=== PATIENT | male | born 1985 | race Caucasian/White ===

== ENCOUNTER 2024-01-10 06:53 | Emergency (ER) | payer OTHER, SELFPAY ==
--- NOTE | 2024-01-10 | ECG_ITS ---
Test Reason : chest pain Blood Pressure : / mmHG Vent. Rate : 100 BPM Atrial Rate : 100 BPM P-R Int : 170 ms QRS Dur : 104 ms QT Int : 354 ms P-R-T Axes : 042 066 059 degrees QTc Int : 456 ms Normal sinus rhythm Incomplete right bundle branch block Borderline ECG When compared with ECG of 20-JUN-2017 21:06, No significant change was found Referred By: Generic ED Physician Electronically Signed By:Mandeep Woodall
--- NOTE | ~2024-01-10 | XR_ITS ---
EXAMINATION: XR CHEST CLINICAL INFORMATION: Pleuritic chest pain COMPARISON: Chest radiograph from 07/02/2008 TECHNIQUE: 2 views of the chest were obtained. FINDINGS: Slight bibasilar radiopacities may reflect atelectasis versus evolving infectious/inflammatory etiology, right greater than left. No pneumothorax. Trachea is midline. Cardiac mediastinal silhouette is not enlarged. No large pleural effusion. Osseous structures are intact. Soft tissues are unremarkable. XR/XR chest 2V IMPRESSION: Slight bibasilar radiopacities may reflect atelectasis versus evolving infectious/inflammatory etiology, right greater than left.
[2024-01-10 07:00] VITALS: BP 143/95; PULSE 98; RESP 18; TEMP 36.7; O2SAT 96; BMI 30.4
--- NOTE | 2024-01-10 07:05 | ED.CHESTPAIN ---
HPI - Chest Pain General Chief Complaint: Chest Pain Stated Complaint: Chest pain Time Seen by Provider: 01/10/24 07:05 Source: patient Mode of arrival: ambulatory Limitations: no limitations History of Present Illness HPI narrative: 38-year-old male with history of hypertension who presents emergency department for evaluation of 2-3 days of pleuritic chest pain, cough, shortness of breath, myalgias, arthralgias, cough induced vomiting. Patient points to his sternum when asked to localize his chest pain. States that the pain is a pressure-like pain which is worse with coughing and with breathing. States he has had a productive cough. He feels short of breath and has dyspnea on exertion. He states his cough is sometimes vigorous that causes him to vomit. Related Data Previous Rx's Medication Instructions Recorded acetaminophen 500 mg tablet 1,000 mg (2 x 500 mg) PO Q6H PRN 01/10/24 (Tylenol Extra Strength) fever or pain #20 tabs albuterol sulfate 90 mcg/actuation 2 puff inhalation QID PRN 01/10/24 aerosol inhaler (Ventolin HFA) bronchospasm #6.7 grams doxycycline hyclate 100 mg tablet 100 mg PO Q12H 7 days #14 tabs 01/10/24 ibuprofen 400 mg tablet 400 mg PO TID PRN fever or pain 01/10/24 #30 tabs Allergies Allergy/AdvReac Type Severity Reaction Status Date / Time No Known Allergies Allergy Verified 01/10/24 07:00 [No Known Allergies*] Review of Systems Review of Systems: Yes all other systems are reviewed and are negative [facility] Past Medical History [facility] Narrative: Past medical history: Hypertension social history: He smokes 1 pack of cigarettes per week. He does drink alcohol daily and he did drink alcohol today. Denies drug use. Social History Social History Alcohol intake: current Smoked in Last 30 Days: Yes Use of substances other than those prescribed or required for medical reasons: No Advance Directives: No Physical Exam Vital Signs: Vital Signs: Last Vital Signs Temp 98.1 F 01/10/24 09:57 Pulse 100 01/10/24 09:57 Resp 18 01/10/24 09:57 BP 115/70 01/10/24 09:57 Pulse Ox 98 01/10/24 09:57 O2 Del Method Room Air 01/10/24 09:57 BMI result Body Mass Index 30.4 Vital signs were normal Exam: General: Awake, alert in no distress Head: Normocephalic, atraumatic EENT: PERRL, Lids normal, sclera normal, conjunctiva normal, nose normal , ears normal, throat without erythema or exudates Neck: Supple, no adenopathy Lung: Diffuse rhonchi and wheezing, no rales, breath sounds symmetric bilaterally Chest: Moderate tenderness palpation of the sternum and costochondral joints bilaterally Heart: regular rate and rhythm, normal S1, S2 no murmurs or rubs Abdomen: soft, non-tender, nondistended, normal bowel sounds Back: no vertebral tenderness, no CVAT Extremities: no deformities, moves all extremities symmetrically Neuro: Awake, alert, oriented, normal speech, cranial nerves intact, moves all extremities symmetrically Psych: Pleasant, cooperative Medications Administered Discontinued Medications Generic Name Dose Route Start Last Admin Trade Name Freq PRN Reason Stop Dose Admin Albuterol Sulfate 4 puff 01/10/24 07:21 01/10/24 07:58 Albuterol Sulfate 90 Mcg 8 Gm Inhaler INHALE 01/10/24 07:22 Not Given ONCE ONE Albuterol Sulfate 2.5 mg/ 0 mg 01/10/24 07:45 01/10/24 07:50 Albuterol/Ipratropium 3 ml INHALE 01/10/24 07:46 1 dose ONCE ONE Administration Ibuprofen 400 mg 01/10/24 07:20 01/10/24 08:56 Ibuprofen 400 Mg Tablet PO 01/10/24 07:21 400 mg ONCE STA Administration Medical Decision Making Medical Decision Making [facility] Narrative: 38-year-old male with history of hypertension who presents emergency department for evaluation of 2-3 days of pleuritic chest pain, cough, shortness of breath, myalgias, arthralgias, cough induced vomiting x3 days. Vital signs were normal. Exam did reveal anterior chest wall tenderness, diffuse wheezing and rhonchi with symmetric breath sounds. Differential diagnosis: ?Includes but is not limited to pneumonia, bronchitis, myocardial infarction, myocardial ischemia, anemia, electrolyte abnormalities Following evaluation was ordered: CBC, CMP, troponin, ethanol level, COVID-19, influenza, RSV, EKG Patient was initially treated with the following: Bronchodilator protocol Course: My interpretation patient's laboratory evaluation as follows: WBC elevated 12,500. High sensitive troponin I below detectable limits. COVID-19, influenza, RSV negative. Ethanol level elevated 276. Patient's 12 EKG was unremarkable. Chest x-ray revealed no acute focal process. Patient was treated with albuterol 2.5 mg mixed with albuterol 2.5 mg/ipratropium 0.5 mg. Patient's lung exam significantly improved and the patient's chest pain also improved after the nebulizer treatment. Patient's presentation is consistent with acute bronchitis and acute alcohol intoxication Patient was started on doxycycline 100 mg q.12h x7 days and albuterol inhaler 2 puffs 4 times a day for 1 week. He was given printed and verbal instructions and discharged home. Admission/Observation Consideration of admission/observation: Escalation of care including admission/observation considered Lab Data MDM Lab Attestation statement: I reviewed the patient's lab results. 01/10/24 07:34 01/10/24 07:33 Labs: Lab Results 01/10/24 01/10/24 Range/Units 07:33 07:34 WBC 12.2 H (4.8-10.8) X10*3/uL RBC 4.67 (4.60-5.80) X10*6/uL Hgb 16.0 (14.0-18.0) g/dl Hct 44.1 (42.0-52.0) % MCV 94.4 (80.0-98.0) fL MCH 34.3 H (27.0-33.0) pg MCHC 36.3 H (31.0-36.0) g/dl RDW 11.7 (11.0-16.0) % Plt Count 105 L (160-400) X10*3/uL MPV 11.0 (9.4-12.4) fL Immature Gran % (Auto) 0.4 (0.0-0.4) % Neut % (Auto) 77.1 H (45-73) % Lymph % (Auto) 15.6 L (20-40) % [place] % (Auto) 5.6 (2-11) % Eos % (Auto) 1.0 (0-4) % Baso % (Auto) 0.3 (0-2) % Lymph # (Auto) 1.9 (1.2-4.9) X10*3/uL [place] # (Auto) 0.7 (0.1-1.2) X10*3/uL Eos # (Auto) 0.1 (0.0-0.4) X10*3/uL Baso # (Auto) 0.0 (0.0-0.2) X10*3/uL Abs Immat Gran (auto) 0.05 H (0.00-0.03) X10*3/uL Absolute Neuts (auto) 9.4 H (2.0-8.3) x10*3/uL Absolute Nucleated RBC 0.000 (0.0-0.012) X10*3/uL Nucleated RBC % (auto) 0.0 (0.0-0.2) /100WBC Sodium 142 (135-145) mmol/L Potassium 3.4 (3.3-5.1) mmol/L Chloride 106 (96-108) mmol/L Carbon Dioxide 27 (22-29) mmol/L Anion Gap 12 (12-20) BUN 7 L (9-16) mg/dL Creatinine 0.78 (0.5-1.4) mg/dL Estim Creat Clear Calc 137.6 Estimated GFR > 60 Random Glucose 96 (60-115) mg/dL Calcium 8.5 (8.4-10.2) mg/dL Total Bilirubin 0.6 (0.0-1.0) mg/dL AST 37 (5-37) U/L ALT 25 (0-40) U/L Alkaline Phosphatase 52 (39-117) U/L Troponin I High Sens < 2.7 (<3.5-35.0) ng/L Total Protein 7.4 (6.5-8.0) g/dL Albumin 4.3 (3.5-5.0) g/dL Ethyl Alcohol 276 mg/dL Influenza Type A (PCR) NEGATIVE (Negative) Influenza Type B (PCR) NEGATIVE (Negative) RSV RNA Qual (PCR) NEGATIVE (Negative) SARS-CoV-2 RNA (RT-PCR) NEGATIVE (Negative) Independent Interpretation I performed an independent interpretation of an: EKG Interpretation: My independent interpretation patient's 12 EKG done at 06:56 hours is as follows: Sinus rhythm with a rate of 100, normal MD interval, prolonged QRS of 104 milliseconds, normal QTC interval 456 milliseconds, no ST segment elevation, no ST segment depression, no significant T-wave abnormalities, no PACs, no PVCs My interpretation of the patient's chest x-ray is as follows: No acute disease Radiology Impression Discussion of test interpretation with radiology: I have reviewed the radiologist's reading. Radiologist Impression: XR chest 2V IMPRESSION: Slight bibasilar radiopacities may reflect atelectasis versus evolving infectious/inflammatory etiology, right greater than left. Dictated By: Ridge Reddy MD Chronic Conditions Patient?s care impacted by: Hypertension Discharge Plan Discharge Clinical Impression: Acute bronchospasm, Tobacco use disorder Acute bronchitis Qualifiers: Bronchitis organism: unspecified organism Qualified Code(s): J20.9 - Acute bronchitis, unspecified Alcohol intoxication Qualifiers: Complication of substance-induced condition: uncomplicated Qualified Code(s): F10.920 - Alcohol use, unspecified with intoxication, uncomplicated Patient Disposition: Home, Self-Care Instructions: Acute Bronchitis (ED) Additional Instructions: Your blood work did reveal an elevated white blood cell count which goes along with infection. Your alcohol level was elevated consistent with alcohol intoxication. The chest x-ray did not reveal any evidence for pneumonia which is reassuring. Your symptoms are consistent with an infection of your breathing tubes (bronchitis) and chest pain caused by inflammation of your breathing tubes in your lungs. You need to stop drinking alcohol and stop smoking while your taking the following medications. Take doxycycline 100 mg, 1 pill every 12 hours for 7 days Take ibuprofen 400 mg pills, 1 pills every 6 hours as needed for pain or fever. Take Tylenol (acetaminophen) 500 mg pills, 2 pills every 6 hours as needed for pain or fever. Use the albuterol inhaler with the spacer, 2 puffs every 4 times a day as needed for shortness of breath and wheezing. Follow-up with your doctor in 2 days. Please return to the emergency department if your symptoms get worse or if you develop any symptoms that are concerning to you. Prescriptions: New acetaminophen [Tylenol Extra Strength] 500 mg tablet 1,000 mg PO Q6H PRN (Reason: fever or pain) Qty: 20 0RF ibuprofen 400 mg tablet 400 mg PO TID PRN (Reason: fever or pain) Qty: 30 0RF doxycycline hyclate 100 mg tablet 100 mg PO Q12H 7 Days Qty: 14 0RF albuterol sulfate [Ventolin HFA] 90 mcg/actuation HFA aerosol inhaler 2 puff inhalation QID PRN (Reason: bronchospasm) Qty: 6.7 0RF Interventions: ED Discharge Assessment Last Done: 01/10/24 09:57 Discharge Date/Time: 01/10/24 09:57
[2024-01-10 07:12] VITALS: BP 142/94; PULSE 95; PULSE 96; RESP 15; TEMP 36.7; O2SAT 98
[2024-01-10 07:41] LABS: MANUAL DIFF FLAG NO
[2024-01-10] MEDS: Albuterol Sulfate 2.5 MG, Albuterol/Iprat 2.5/0.5MG 3 ML 3 ML INHALE (07:50)
[2024-01-10 07:59] VITALS: PULSE 91; RESP 20; O2SAT 95
[2024-01-10 07:59] LABS: Alanine Aminotransferase 25 U/L (0-40); Albumin Level 4.3 g/dL (3.5-5.0); Alkaline Phosphatase 52 U/L (39-117); Anion Gap 12 (12-20); Aspartate Amino Transferase 37 U/L (5-37); Bilirubin Total 0.6 mg/dL (0.0-1.0); Blood Urea Nitrogen 7 mg/dL (9-16); Calcium 8.5 mg/dL (8.4-10.2); Carbon Dioxide 27 mmol/L (22-29); Chloride 106 mmol/L (96-108); Creatinine Clr Calc Pharmacy 137.6; Estimated Glomerular Filt Rate > 60; Ethanol 276 mg/dL; Glucose Random 96 mg/dL (60-115); Potassium 3.4 mmol/L (3.3-5.1); Sodium 142 mmol/L (135-145); Total Protein 7.4 g/dL (6.5-8.0)
[2024-01-10 08:07] LABS: Troponin-I High Sensitivity < 2.7 ng/L (<3.5-35.0)
[2024-01-10 08:11] LABS: Basophils Percent Auto 0.3 % (0-2); Eosinophils Absolute Auto 0.1 X10*3/uL (0.0-0.4); Hematocrit 44.1 % (42.0-52.0); Imm Gran Abs Auto 0.05 X10*3/uL (0.00-0.03); Imm Gran Pct Auto 0.4 % (0.0-0.4); Lymphocytes Absolute Auto 1.9 X10*3/uL (1.2-4.9); Lymphocytes Percent Auto 15.6 % (20-40); Mean Corpuscular HGB Conc 36.3 g/dl (31.0-36.0); Mean Corpuscular Hemoglobin 34.3 pg (27.0-33.0); Mean Corpuscular Volume 94.4 fL (80.0-98.0); Monocytes Absolute Auto 0.7 X10*3/uL (0.1-1.2); Monocytes Percent Auto 5.6 % (2-11); Neutrophils Absolute Auto 9.4 x10*3/uL (2.0-8.3); Neutrophils Percent Auto 77.1 % (45-73); Platelet Count 105 X10*3/uL (160-400); Red Blood Count 4.67 X10*6/uL (4.60-5.80); Red Cell Distribution Width 11.7 % (11.0-16.0); White Blood Count 12.2 X10*3/uL (4.8-10.8)
[2024-01-10 08:30] LABS: Influenza A PCR NEGATIVE (Negative); Influenza B PCR NEGATIVE (Negative); Resp Syncy Virus RNA Qual PCR NEGATIVE (Negative); SARS COV2 PCR INHOUSE NEGATIVE (Negative)
[2024-01-10] MEDS: Ibuprofen 400 MG TABLET PO (08:56)
[2024-01-10 09:56] VITALS: BP 115/70; PULSE 100; RESP 18; TEMP 36.6; O2SAT 98
[2024-01-10 09:57] VITALS: BP 115/70; PULSE 100; RESP 18; TEMP 36.7; O2SAT 98
== END 2024-01-10 09:57 | disposition home or self-care (01) ==
PROVIDERS: Emergency Provider Emergency Medicine Emergency Medical Services
DX: J98.01 Acute bronchospasm (principal); Z72.0 Tobacco use; R07.9 Chest pain, unspecified; R05.9 Cough, unspecified; R06.02 Shortness of breath; R11.10 Vomiting, unspecified; M79.10 Myalgia, unspecified site; Z11.52 Encounter for screening for COVID-19; Z20.828 Contact with and (suspected) exposure to other viral communicable diseases
CPT/HCPCS: 0241U; 36415; 71046; 80053; 80307; 84484; 85025; 93005; 94640; 99284; 99285

== ENCOUNTER → 2024-01-10 06:56 | Outpatient (BNV) | payer OTHER, SELFPAY | PROVIDERS: Emergency Provider Emergency Medicine Emergency Medical Services; Visit Provider Internal Medicine Cardiovascular Disease | DX: R07.9 Chest pain, unspecified (principal) | CPT/HCPCS: 93010 ==

== ENCOUNTER 2025-08-05 08:52 | Emergency (ER) | payer MEDICAID, SELFPAY ==
--- NOTE | ~2025-08-05 | CT_ITS ---
EXAMINATION: CTA NECK WITH CONTRAST (STROKE) CTA BRAIN WITH CONTRAST (STROKE) CLINICAL INFORMATION: Left upper extremity weakness. COMPARISON: Correlated to CT brain dated August 01, 2014. TECHNIQUE: CTA of the head and neck was performed in the axial plane from the mediastinum to the skull vertex using 70 mL Omnipaque 350 intravenous contrast. Additional reformatted multiplanar images including maximum intensity projection MIP images are generated on the CT workstation. This CT examination was performed using dose optimization techniques as appropriate, variously including the following: *Automated exposure control *Adjustment of mA and/or kV according to patient size (this includes techniques or standardized protocols for targeted exams where dose is matched to indication/reason for exam; i.e. extremities or head) *Use of iterative reconstruction technique. Total DLP: 1658 mg centimeter. FINDINGS: The degree of stenosis determined by criteria similar to NASCET. Brain: No acute intracranial hemorrhage, mass effect, midline shift, hydrocephalus or herniation. Kohli-white matter differentiation is normal. Prominence of the extra-axial CSF spaces cerebral sulci and ventricles. Posterior cranial fossa contents demonstrated no gross hemorrhage or mass effect. Craniocervical junction is intact with normal position of the cerebellar tonsils. No gross masses in the sellar suprasellar region. Polypoid paranasal sinus disease. Tympanic cavities and mastoid cells are aerated. Chest CTA: No aneurysm or dissection. No focal stenosis. Limited evaluation on the of the aortic arch. The ascending thoracic aorta diameter measures 3.5 cm. Neck CTA: Right CCA: Normal patency. No focal stenosis. No intimal flap. Right ICA: Mixed plaques. Normal patency. No focal stenosis. No intimal flap. Tortuosity in the distal segment. Left CCA: Normal patency. No focal stenosis. No intimal flap. Left ICA: Mixed plaques. Normal patency. No focal stenosis. No intimal flap. Tortuosity distal segment. V1/V2 segments: Normal patency. No focal stenosis. No intimal flap. Codominant. Origin from the subclavian arteries. Brain CTA: Anterior cerebral circulation: ICAs: Normal patency. No focal stenosis. No abrupt cut off. ICA terminus is normal. MCA: Normal patency. No focal stenosis. No abrupt cut off. Trifurcation/trifurcation demonstrated no gross vascular irregularity. ACAs: Normal patency. No focal stenosis. No abrupt cut off. Anterior communicating artery is patent without gross abnormality. Ophthalmic arteries are patent without gross abnormality. Right posterior communicating artery is patent with small caliber. Posterior cerebral circulation: V3/V4 segments: Normal patency. No focal stenosis. No intimal flap. Posterior inferior cerebral arteries are patent. Anterior inferior cerebral arteries are patent. Basilar artery is patent without focal stenosis or intimal flap. Superior cerebellar arteries are patent. hand hose cutter: Normal patency. No focal stenosis. No abrupt cut off. Ancillary findings: No main cerebral venous sinus thrombosis. Nonspecific prominent cervical lymph nodes. Subcentimeter hypodense cystic nodules in the thyroid gland. Polypoid paranasal sinus disease. Pulmonary mosaic pattern, subtle. Mild cervical spondylosis C4-5 and C5-6. CT/CT angio head neck IMPRESSION: No main cerebral artery occlusion or embolus or gross aneurysm. Mixed plaques in the carotid bulbs and proximal ICAs without high degree stenosis or dissection. 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 This critical test result is communicated to: Hemorrhagic CVA physician Dr. Bill Verdugo is be a tiger connect at 3:43 PM on August 05, 2025. Electronically signed by: Darrius Juárez MD 08/05/2025 03:43 PM EDT
--- NOTE | ~2025-08-05 | XR_ITS ---
EXAMINATION: XR CHEST CLINICAL INFORMATION: Left upper extremity weakness COMPARISON: January 10, 2024. TECHNIQUE: Frontal view of the chest was obtained. FINDINGS: No consolidation, pleural effusion or pneumothorax. No hyperinflation. Cardiomediastinal silhouette size is normal. Osseous structures are intact. XR/XR chest 1V IMPRESSION: No acute airspace disease. Electronically signed by: Darrius Juárez MD 08/05/2025 02:19 PM EDT
[2025-08-05 09:03] VITALS: BP 190/112; PULSE 104; RESP 18; TEMP 36.6; O2SAT 95; BMI 28.1
[2025-08-05 09:20] LABS: MANUAL DIFF FLAG NO
[2025-08-05 09:24] LABS: Hematocrit 45.6 % (42.0-52.0); Hemoglobin 16.5 g/dl (14.0-18.0); Imm Gran Abs Auto 0.02 X10*3/uL (0.00-0.03); Imm Gran Pct Auto 0.3 % (0.0-0.4); Lymphocytes Absolute Auto 2.1 X10*3/uL (1.2-4.9); Mean Corpuscular HGB Conc 36.2 g/dl (31.0-36.0); Mean Corpuscular Hemoglobin 34.2 pg (27.0-33.0); Mean Corpuscular Volume 94.6 fL (80.0-98.0); NRBC Abs Auto 0.000 X10*3/uL (0.0-0.012); NRBC Pct Auto 0.0 /100WBC (0.0-0.2); Platelet Count 169 X10*3/uL (160-400); Red Blood Count 4.82 X10*6/uL (4.60-5.80); White Blood Count 7.7 X10*3/uL (4.8-10.8)
[2025-08-05 09:39] LABS: Anion Gap 17 (12-20); Blood Urea Nitrogen 7 mg/dL (9-16); Calcium 8.8 mg/dL (8.4-10.2); Carbon Dioxide 22 mmol/L (22-29); Chloride 109 mmol/L (96-108); Creatinine Clr Calc Pharmacy 157.8; Estimated Glomerular Filt Rate > 60; Potassium 3.6 mmol/L (3.3-5.1); Sodium 144 mmol/L (135-145)
--- NOTE | 2025-08-05 13:59 | ECG_ITS ---
Test Reason : LUE WEAKNESS Blood Pressure : */* mmHG Vent. Rate : 87 BPM Atrial Rate : 87 BPM P-R Int : 162 ms QRS Dur : 100 ms QT Int : 374 ms P-R-T Axes : 54 50 46 degrees QTcB Int : 450 ms Normal sinus rhythm Incomplete right bundle branch block Borderline ECG When compared with ECG of 10-Jan-2024 06:56, No significant change was found Referred By: Bill Verdugo Electronically Signed By: DIALLO LAKE MD
--- NOTE | 2025-08-05 14:00 | ED.GENADULT ---
HPI - General Adult General Chief complaint: General Medical Stated complaint: L arm weakness, tick L knee Time Seen by Provider: 08/05/25 13:51 Source: patient Mode of arrival: ambulatory Limitations: no limitations History of Present Illness ED Provider: DR. Verdugo HPI narrative: 39-year-old male came in for assessment of multiple complaints. 1. Left hand/left forearm weakness x2 days patient is unable to twist and open a bottle of water, and things drop off his left hand due to weakness, no trauma, no headache, no blurry vision, no chest pain, no chest, no shortness of breath. No speech abnormality, no other weakness or numbness. 2. Patient also had a tick imbedded into his right thigh, patient is not sure for how long the tick is imbedded in the thigh but to be at least 2 todays. Related Data Previous Rx's ?Medication ?Instructions ?Recorded acetaminophen 500 mg tablet 1,000 mg (2 x 500 mg) PO Q6H PRN 01/10/24 (Tylenol Extra Strength) fever or pain #20 tabs albuterol sulfate 90 mcg/actuation 2 puff inhalation QID PRN 01/10/24 aerosol inhaler (Ventolin HFA) bronchospasm #6.7 grams doxycycline hyclate 100 mg tablet 100 mg PO Q12H 7 days #14 tabs 01/10/24 ibuprofen 400 mg tablet 400 mg PO TID PRN fever or pain 01/10/24 #30 tabs Allergies Allergy/AdvReac Type Severity Reaction Status Date / Time No Known Allergies (No Known Allergy Verified 08/05/25 09:05 Allergies*) Review of Systems Review of Systems: All other systems are reviewed and are negative Constitutional: Reports as per HPI and Reports no additional constitutional complaints Eyes: Reports as per HPI and Reports no additional eye complaints Reports system reviewed and no additional complaints, except as documented Cardiovascular: Reports as per HPI and Reports no additional cardiovascular complaints Respiratory: Reports as per HPI and Reports no additional respiratory complaints Gastrointestinal: Reports as per HPI and Reports no additional gastrointestinal complaints Genitourinary: Reports no additional female genitourinary complaints Musculoskeletal: Reports no additional musculoskeletal complaints Skin/Breast: Reports system reviewed and no additional complaints, except as docu Psychiatric: Reports no additional psychiatric complaints Endocrine: Reports no additional endocrine complaints Hematologic/Lymphatic: Reports no additional hematologic/lymphatic complaints Allergic/Immunologic: Reports no additional allergic/immunologic complaints Reports system reviewed and no additional complaints, except as documented and Reports Abnormal speech present ON LICENSE OF [facility] Social History Social History Alcohol intake: current Advance Directives: No Advance Directives Information Provided: No Physical Exam ED Vital Signs: Vital Signs - 24 hr 08/05/25 09:03 08/05/25 14:30 Temperature 98 F 98.5 F Pulse Rate 104 H 90 Respiratory Rate 18 16 Blood Pressure 190/112 H 160/105 H Pulse Oximetry 95 95 Oxygen Delivery Method Room Air Room Air BMI result Body Mass Index 28.1 Vital signs have been reviewed and appear to be correct. Blood pressure elevated. Heart rate elevated, Respiratory rate normal. Temperature normal. Oxygen saturation normal. Appearance: Alert. Oriented X3. No acute distress. Head: Normal external exam. Normocephalic. Atraumatic. No Rose signs noted. No raccoon eyes noted Eyes: PERRLA. EOMI. Conjunctiva and sclera normal. Eyelids normal. ENT: TM's Normal. Pharynx normal. Uvula midline. Moist mucous membranes. No trismus noted. No drooling noted. No muffled voice noted. Neck: Normal inspection. Neck supple. FROM. No adenopathy. Thyroid Normal. No meningeal signs. No neck mass noted. CVS: Normal heart rate and rhythm. Heart sound normal. No murmurs noted. Pulses normal throughout. Respiratory: No respiratory distress. Painless inspiration. Breath sounds normal. No wheezes/rales/rhonchi noted. Chest nontender. No accessory muscle usage noted or decreased air movement noted. Abdomen: Soft and nontender. Bowel sounds normal in all 4 quadrants. No distention noted. No organomegaly noted. No visible injury noted. Back: No CVA tenderness. Full range of motion noted. Skin: Skin warm and dry. Normal skin color. Normal skin turgor. No rashes/lesions/lacerations noted. Extremities: Right lower extremity: A tick imbedded in lower part of medial aspect of the right thigh. Neuro: Mental status: Normal attention, orientation, memory, and affect. Cranial nerves: Pupils are equal, round and reactive to light, EOMI, visual webber are fall, face is symmetric, facial sensations are normal. Motor examination normal muscle tone, strength to 4 extremities. DTR are +2, planter's are flexor. Sensory exam; normal coordination, no ataxia, gait stable. Cerebellar exam: [id number] and [id number] is normal. Extrapyramidal system: No tremors, no rigidity with normal facial expressions. Mild left upper extremity pronator drift. NIH Stroke Scale Time: 15:46 Level of Consciousness: Alert Level of Consciousness Questions: Answers both questions correctly Level of Consciousness Commands: Performs both tasks correctly Best Gaze: Normal Visual: No visual loss Facial Palsy: Normal Motor Arm (Right): No drift Motor Arm (Left): Drift Motor Leg (Right): No drift Motor Leg (Left): No drift Limb Ataxia: Absent Sensory: Normal Best Language: No aphasia Dysarthia: Normal Extinction and Inattention: No abnormality Score: 1 Course Reevaluation(s) Reevaluation #1: 39-year-old male came in with left hand weakness and numbness x2 days neuro exam is suggesting mono neuropathy patient will get CT/CTA/MRI of the brain to rule out ACS. Patient suggesting that the tick is imbedded in his right thigh for more than 2 days will give a prophylactic 200 mg doxycycline. Unable to perform MRI today because shortage of MRI staff, will be done tomorrow morning, patient need clearance of both humeral possible metallic retention has been Dr. Frank will order bilateral humerus x-ray rule out metallic retention. Since symptoms started 2 days ago patient is not a candidate for TNK. Time: 14:57 Reevaluation #2: Patient declined to be admitted to the hospital has to be at work tomorrow, patient fully understand the risk of leaving AMA and risk of having non treated stroke including weakness, paralysis, and was discussed with the patient as a result of signing against medical advice, patient is willing to take risk for discharge. Time: 16:06 Medications Administered Discontinued Medications Generic Name Dose Route Start Last Admin Trade Name Freq PRN Reason Stop Dose Admin Aspirin 325 mg 08/05/25 15:44 08/05/25 16:04 Aspirin 325 Mg Tablet PO 08/05/25 15:45 325 mg ONCE ONE Administration Doxycycline Monohydrate 200 mg 08/05/25 14:56 08/05/25 15:08 Doxycycline Monohydrate 100 Mg Capsule PO 08/05/25 14:57 200 mg ONCE ONE Administration Iohexol 100 ml 08/05/25 15:10 08/05/25 15:10 Iohexol 350 Mg/Ml 100 Ml Infus..Btl IV 08/05/25 15:11 70 ml ONCE ONE Administration Medical Decision Making Differential Diagnosis Differential Diagnoses: The differential diagnosis associated with the presentation includes Admission/Observation Consideration of admission/observation: Escalation of care including admission/observation considered Lab Data MDM Lab Attestation statement: I reviewed the patient's lab results. 08/05/25 14:21 08/05/25 14:22 Labs: Lab Results 08/05/25 08/05/25 08/05/25 Range/Units 09:11 14:21 14:22 WBC 7.7 9.4 (4.8-10.8) X10*3/uL RBC 4.82 4.76 (4.60-5.80) X10*6/uL Hgb 16.5 16.2 (14.0-18.0) g/dl Hct 45.6 44.2 (42.0-52.0) % MCV 94.6 92.9 (80.0-98.0) fL MCH 34.2 H 34.0 H (27.0-33.0) pg MCHC 36.2 H 36.7 H (31.0-36.0) g/dl RDW 11.2 11.2 (11.0-16.0) % Plt Count 169 D 154 L (160-400) X10*3/uL MPV 10.0 10.3 (9.4-12.4) fL Immature Gran % (Auto) 0.3 0.3 (0.0-0.4) % Neut % (Auto) 63.2 66.3 (45-73) % Lymph % (Auto) 27.2 24.8 (20-40) % [place] % (Auto) 6.6 6.1 (2-11) % Eos % (Auto) 2.2 1.9 (0-4) % Baso % (Auto) 0.5 0.6 (0-2) % Lymph # (Auto) 2.1 2.3 (1.2-4.9) X10*3/uL [place] # (Auto) 0.5 0.6 (0.1-1.2) X10*3/uL Eos # (Auto) 0.2 0.2 (0.0-0.4) X10*3/uL Baso # (Auto) 0.0 0.1 (0.0-0.2) X10*3/uL Abs Immat Gran (auto) 0.02 0.03 (0.00-0.03) X10*3/uL Absolute Neuts (auto) 4.9 6.2 (2.0-8.3) x10*3/uL Absolute Nucleated RBC 0.000 0.000 (0.0-0.012) X10*3/uL Nucleated RBC % (auto) 0.0 0.0 (0.0-0.2) /100WBC Sodium 144 143 (135-145) mmol/L Potassium 3.6 3.1 L (3.3-5.1) mmol/L Chloride 109 H 105 (96-108) mmol/L Carbon Dioxide 22 25 (22-29) mmol/L Anion Gap 17 16 (12-20) BUN 7 L 8 L (9-16) mg/dL Creatinine 0.67 0.64 (0.5-1.4) mg/dL Estim Creat Clear Calc 157.8 165.2 Estimated GFR > 60 > 60 Random Glucose 114 112 (60-115) mg/dL Calcium 8.8 9.2 (8.4-10.2) mg/dL Total Bilirubin 0.8 (0.0-1.0) mg/dL Direct Bilirubin 0.2 (0.0-0.5) mg/dL AST 26 (5-37) U/L ALT 18 (0-40) U/L Alkaline Phosphatase 59 (39-117) U/L Troponin I High Sens < 2.7 (<3.5-35.0) ng/L Total Protein 7.8 (6.5-8.0) g/dL Albumin 4.8 (3.5-5.0) g/dL Lipase 25 (8-78) U/L Discharge Plan Discharge Clinical Impression: Tick bite, Left hand weakness Patient Disposition: Left Against Medical Advice Instructions: Tick Bite (ED), Weakness (ED) Prescriptions: No Action acetaminophen [Tylenol Extra Strength] 500 mg tablet 1,000 mg PO Q6H PRN (Reason: fever or pain) Qty: 20 0RF ibuprofen 400 mg tablet 400 mg PO TID PRN (Reason: fever or pain) Qty: 30 0RF doxycycline hyclate 100 mg tablet 100 mg PO Q12H 7 Days Qty: 14 0RF albuterol sulfate [Ventolin HFA] 90 mcg/actuation HFA aerosol inhaler 2 puff inhalation QID PRN (Reason: bronchospasm) Qty: 6.7 0RF Referrals: [place],[facility] [Primary Care Provider, Primary Care] Print Language: B[place]
[2025-08-05 14:25] LABS: MANUAL DIFF FLAG NO
[2025-08-05 14:28] LABS: Hematocrit 44.2 % (42.0-52.0); Hemoglobin 16.2 g/dl (14.0-18.0); Imm Gran Abs Auto 0.03 X10*3/uL (0.00-0.03); Imm Gran Pct Auto 0.3 % (0.0-0.4); Lymphocytes Absolute Auto 2.3 X10*3/uL (1.2-4.9); Mean Corpuscular HGB Conc 36.7 g/dl (31.0-36.0); Mean Corpuscular Hemoglobin 34.0 pg (27.0-33.0); Mean Corpuscular Volume 92.9 fL (80.0-98.0); NRBC Abs Auto 0.000 X10*3/uL (0.0-0.012); NRBC Pct Auto 0.0 /100WBC (0.0-0.2); Platelet Count 154 X10*3/uL (160-400); Red Blood Count 4.76 X10*6/uL (4.60-5.80); White Blood Count 9.4 X10*3/uL (4.8-10.8)
[2025-08-05 14:30] VITALS: BP 160/105; PULSE 90; RESP 16; TEMP 36.9; O2SAT 95
--- NOTE | 2025-08-05 14:30 | PC.NURSE ---
MRI form completed and faxed
--- NOTE | 2025-08-05 14:32 | PC.NURSE ---
Pt awake and alert. Presents with left sided arm weakness x3 days. 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 Denies headache/blurry vision. Speech clear, no facial droop noted. Neurologically intact. Denies chest pain/SOB. Tick bite to right inner thigh, noticed this AM. 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 PIV in place. Noted to be hypertensive 160/105, states on a BP med but not always compliant.
[2025-08-05 14:46] LABS: Troponin-I High Sensitivity < 2.7 ng/L (<3.5-35.0)
[2025-08-05 15:08] LABS: Alanine Aminotransferase 18 U/L (0-40); Albumin Level 4.8 g/dL (3.5-5.0); Alkaline Phosphatase 59 U/L (39-117); Anion Gap 16 (12-20); Aspartate Amino Transferase 26 U/L (5-37); Blood Urea Nitrogen 8 mg/dL (9-16); Calcium 9.2 mg/dL (8.4-10.2); Carbon Dioxide 25 mmol/L (22-29); Chloride 105 mmol/L (96-108); Creatinine Clr Calc Pharmacy 165.2; Estimated Glomerular Filt Rate > 60; Lipase 25 U/L (8-78); Potassium 3.1 mmol/L (3.3-5.1); Sodium 143 mmol/L (135-145); Total Protein 7.8 g/dL (6.5-8.0)
[2025-08-05] MEDS: iohexoL 350 MG/ML 100 ML INFUS..BTL IV (15:10)
[2025-08-05 16:05] VITALS: BP 149/115; PULSE 88; RESP 16; TEMP 36.9; O2SAT 97
[2025-08-05 16:10] VITALS: BP 149/115; PULSE 88; RESP 16; TEMP 36.9; O2SAT 97
[2025-08-06 05:48] LABS: Lyme Abs Screen <0.90 index
== END 2025-08-05 16:19 | disposition left against medical advice (07) ==
PROVIDERS: Emergency Provider Emergency Medicine; PCP Dentist General Practice
DX: S60.562A Insect bite (nonvenomous) of left hand, initial encounter (principal); M62.81 Muscle weakness (generalized); I45.10 Unspecified right bundle-branch block; R94.31 Abnormal electrocardiogram [ECG] [EKG]; W57.XXXA Bitten or stung by nonvenomous insect and other nonvenomous arthropods, initial encounter; Y93.9 Activity, unspecified; Y92.9 Unspecified place or not applicable; Y99.8 Other external cause status
CPT/HCPCS: 36415; 70496; 70498; 71045; 80048; 80076; 83690; 84484; 85025; 86617; 86618; 93005; 99284; Q9967

== ENCOUNTER → 2025-08-05 13:59 | Outpatient (BNV) | payer MEDICAID, SELFPAY | END | disposition left against medical advice (07) | PROVIDERS: Emergency Provider Emergency Medicine; PCP Dentist General Practice; Visit Provider Internal Medicine Cardiovascular Disease | DX: I45.10 Unspecified right bundle-branch block (principal) | CPT/HCPCS: 93010 ==

== ENCOUNTER → 2025-08-05 13:59 | Outpatient (BNV) | payer MEDICAID, SELFPAY | PROVIDERS: Emergency Provider Emergency Medicine; PCP Dentist General Practice; Visit Provider Radiology Diagnostic Radiology | DX: I65.23 Occlusion and stenosis of bilateral carotid arteries (principal); I77.810 Thoracic aortic ectasia; R20.2 Paresthesia of skin; R53.1 Weakness | CPT/HCPCS: 70496; 70498; 71045 ==